=== PATIENT | female | born 1970 | race Caucasian/White ===

== ENCOUNTER 2019-08-06 17:56 | Observation (INO) ==
--- NOTE | 2019-08-06 18:21 | Emergency Department Note ---
Disposition Clinical Impression: Asthma with exacerbation Qualifiers: Asthma severity: mild Asthma persistence: intermittent Qualified Code(s): J45.21 - Mild intermittent asthma with (acute) exacerbation Disposition: Still a Patient Condition: Good Instructions: How to Use a Nebulizer (ED), Asthma (ED) Reasons to Return/Additional Instructions: You were given a DuoNeb's as well as Decadron a steroid and magnesium sulfate while here in the ED. We will likely to follow-up with primary care physician. Please contact them tomorrow to discuss her emergency department visit. We did provide you with DuoNeb's for home use. If you have any increase in her shortness of breath or develop chest pain or any other signs or symptoms are concerning to you please return to emergency department immediately. Prescriptions: Ipratropium/Albuterol Neb [Duoneb] 3 ml IH ONCE 30 Days #1 unit Forms: ED Satisfaction Letter Time of Disposition: 20:02 General Adult HPI - General Chief complaint: ED Shortness of Breath/Dyspnea Stated complaint: HANANE Time Seen by Provider: 08/06/19 18:13 Source: patient Limitations: no limitations Nursing Notes Reviewed: Yes Vital Signs Reviewed: Yes - History of Present Illness HPI Narrative: Female patient with a history of strokes previously is currently on a local is presenting to the emergency department complaining of shortness of breath. Also has history of asthma. Has been using her rescue inhaler. States her symptoms started on Tuesday after she was at her family's house. Thought this was just an asthma exacerbation but started feeling worse throughout the day. States that she was laying in bed all day because of her shortness of breath. States today after she started coughing severely she started having a right-sided chest pain. She describes it as sharp in nature. It is intermittent. States she does have a productivity to her cough. Has not checked her temperature to know if she has a fever. She reports some nausea but denies any vomiting. Was seen at urgent care and sent here for further evaluation. Pain Scale: 7 - Related Data Home Medications Medication Instructions Recorded Confirmed Aspirin 325 mg PO DAILY 08/27/15 08/24/16 Escitalopram [Lexapro] 20 mg PO DAILY 08/27/15 08/24/16 Lansoprazole [Prevacid] 30 mg PO BID 08/27/15 08/24/16 Montelukast [Singulair] 10 mg PO DAILY 08/27/15 08/24/16 Albuterol Neb [Proventil Neb] 2.5 mg IH Q4HR 06/25/16 08/24/16 Aspirin/Acetaminophen/Caffeine 1 tab PO Q6H PRN 06/25/16 08/24/16 [Excedrin Migraine Caplet] L.acidoph,Paracasei, B.lactis 1 cap PO DAILY 06/25/16 08/24/16 [Probiotic] Metoprolol Succinate 100 mg PO DAILY 06/25/16 08/24/16 Multivitamin [Multivitamins] 1 cap PO DAILY 06/25/16 08/24/16 Levothyroxine [Synthroid] 25 mcg PO QAM 08/24/16 08/24/16 Previous Rx's Medication Instructions Recorded Apixaban [Eliquis] 5 mg PO BID #60 tablet 02/02/16 Acetaminophen [Tylenol] 650 mg PO Q6H PRN #0 tablet 08/31/16 Albuterol Neb [Proventil Neb] 2.5 mg IH Q4HR inhsol 08/31/16 Melatonin 3 mg PO HS PRN #0 tablet 08/31/16 Midodrine [ProAmatine] 5 mg PO 0800,1200,1700 tablet 08/31/16 OxyCODONE Immed Rel [Roxicodone 10 5 mg PO Q6H PRN #10 tablet 08/31/16 MG] OxyCODONE/APAP 5/325 [Percocet 1 each PO Q6HR PRN #10 tablet 08/31/16 5/325 MG] Pregabalin [Lyrica] 150 mg PO TID #10 capsule 08/31/16 Promethazine [Phenergan] 25 mg PO ACHS tablet 08/31/16 Sennosides/Docusate Sodium [Senna 1 each PO BID tablet 08/31/16 Plus] Zolpidem [Ambien] 10 mg PO HS PRN #3 tablet 08/31/16 clonazePAM [Klonopin] 0.5 mg PO BID #10 tablet 08/31/16 Ipratropium/Albuterol Neb [Duoneb] 3 ml IH ONCE 30 Days #1 unit 08/06/19 Allergies Allergy/AdvReac Type Severity Reaction Status Date / Time codeine Allergy Nausea Verified 08/06/19 18:00 Penicillins [PCN] Allergy Vomiting Verified 08/06/19 18:00 Pineapple Allergy Hives Verified 08/06/19 18:00 rofecoxib [From Vioxx] Allergy See Verified 08/06/19 18:00 Comments Sulfa (Sulfonamide Allergy Rash Verified 08/06/19 18:00 Antibiotics) All systems ED: reviewed and negative except as stated. Review of Systems: As Per HPI Constitutional: Denies: chills ENT ED: Denies: congestion Cardiovascular: Reports: chest pain. Denies: syncope Respiratory: Reports: cough, dyspnea, sputum production Gastrointestinal: Reports: nausea. Denies: abdominal pain, vomiting, diarrhea Genitourinary: Denies: urgency Musculoskeletal: Denies: back pain Neurological: Denies: headache Past Medical History - Past Medical History Attestation: Yes The following information was validated with the patient. Source: patient Medical history: Reports: asthma, coronary artery disease, CVA, fibromyalgia, GERD, liver disease, seizures, thyroid disease, TIA, other Surgical history: Reports: appendectomy, cholecystectomy, hysterectomy, other Psychiatric history: Reports: anxiety, depression BENDER MACHINE history: Reports: no BENDER MACHINE history - Social History Smoking Status: Never smoker Smokeless Tobacco Status: No Alcohol use: Reports: rarely Drug use: Reports: none Physical Exam - General Limitations: no limitations General appearance: alert, in no apparent distress - Head Head exam: atraumatic, normocephalic, normal inspection - Eye Eye exam: Present: normal appearance, PERRL, EOMI - ENT ENT exam: normal exam, normal oropharynx, mucous membranes moist - Neck Neck exam: Present: normal inspection, full ROM, trachea midline - Chest Chest inspection: Present: normal inspection, symmetric chest wall rise - Respiratory Respiratory exam: Present: wheezes (Bilaterally. Expiratory. Crackles worse on the right in the middle lobe area.). Absent: respiratory distress, accessory muscle use - Cardiovascular Cardiovascular exam: Present: regular rate, normal rhythm, normal heart sounds - Abdominal Exam Abdominal exam: Present: soft, Non-Tender. Absent: tenderness, distention, guarding, rebound, rigidity, organomegaly, Sinclair's sign, Rovsing's sign, tenderness at McBurney's Point - Extremities Exam Extremities exam: Present: normal inspection, full ROM, normal capillary refill. Absent: tenderness, pedal edema, calf tenderness - Neurological Exam Neurological exam: Present: alert, oriented X3 - Psychiatric Psychiatric exam: Present: normal affect, normal mood - Skin Skin exam: Present: warm, dry, intact, normal color. Absent: rash, cyanosis, diaphoresis Course Course Narrative: Patient with a history of asthma. Extra wheeze throughout. Crackles noted on the right worse than the left as well. No fevers. Not tachycardic. Concerned because the patient does have a history of strokes. We will get a d-dimer she does have some chest pain associated with coughing. We will provide patient with a DuoNeb as well. We will get a chest x-ray. We will provide patient with a liter of fluid and she states she has not been eating or drinking for the past 2-3 days because of her increased risk of breath that is with a productive sputum. - Reevaluation(s) Reevaluation #1: Patient reevaluated. Patient still with an expiratory wheeze. Appears to be more tracheal in nature however her lung sounds are tight throughout. Oxygen saturations dipping down to 90%. D-dimer is negative. No signs of pneumonia on her chest x-ray. We will provide patient with 2 more duo nebs and magnesium sul fate. We will reevaluate at that time. Patient does use oxygen at home occasionally. She has been using this while here. Her actions saturation is been stable 90% on 2 L. Patient has requested not to be admitted at this time. I feel this is reasonable. We will give patient 2 more duo nebs as well as provide her with magnesium sulfate and reevaluate. Time: 19:33 Vital Signs Temperature 99.3 F 08/06/19 17:58 Pulse Rate 87 08/06/19 17:58 Respiratory Rate 18 08/06/19 17:58 Blood Pressure 106/77 08/06/19 17:58 O2 Sat by Pulse Oximetry 95 08/06/19 17:58 Temperature 99.3 F 08/06/19 17:58 Pulse Rate 91 08/06/19 18:54 Respiratory Rate 22 08/06/19 18:54 Blood Pressure 110/79 08/06/19 18:54 O2 Sat by Pulse Oximetry 98 08/06/19 18:54 Oxygen Delivery Oxygen Delivery Room Air Medical Decision Making - Medical Records Medical records reviewed: Yes I reviewed the patient's medical records. - Lab Data Lab results reviewed: Yes I reviewed the patient's lab results. Result diagrams: 08/06/19 18:45 08/06/19 18:45 Lab Results 08/06/19 08/06/19 08/06/19 Range/Units 18:45 18:45 18:45 WBC 8.1 (4.3-11.1) K/mcL RBC 5.12 H (3.82-4.97) M/mcL Hgb 14.0 (11.5-15.4) g/dL Hct 44.0 (35.3-44.9) % MCV 85.9 (83.0-100.0) fL MCH 27.3 L (28.0-33.3) pg MCHC 31.8 (31.6-35.5) g/dL RDW 12.1 (11.5-14.5) % Plt Count 200 (140-400) K/mcL MPV 10.8 (9.4-12.4) fL Immature Gran % 1.0 (0-4) % Seg Neutrophils % 72.6 % Lymphocytes % 15.0 % Monocytes % 7.2 % Eosinophils % 3.6 % Basophils % 0.6 % Neutrophils # 5.9 (1.6-8.9) K/mcL Lymphocytes # 1.2 (0.6-4.6) K/mcL Monocytes # 0.6 (0.0-1.3) K/mcL Eosinophils # 0.3 (0.0-0.6) K/mcL Basophils # 0.1 (0.0-0.2) K/mcL D-Dimer 381 (0-500) ng/mLFEU Sodium 137 (136-145) mEq/L Potassium 3.9 (3.5-5.1) mEq/L Chloride 98 (98-107) mEq/L Carbon Dioxide 27 (23-29) mEq/L BUN 10 (6-20) mg/dL Creatinine 1.10 (0.60-1.20) mg/dL Est GFR ( Amer) > 60 (> 60) Est GFR (Non-Af Amer) 53 L (> 60) BUN/Creatinine Ratio 9 (6-26) Glucose 90 (70-105) mg/dL Calculated Osmolality 283 (280-300) Lactic Acid (0.5-2.2) mmol/L Calcium 9.4 (8.6-10.3) mg/dL Troponin I < 0.03 (< 0.04) ng/mL 08/06/19 Range/Units 18:45 WBC (4.3-11.1) K/mcL RBC (3.82-4.97) M/mcL Hgb (11.5-15.4) g/dL Hct (35.3-44.9) % MCV (83.0-100.0) fL MCH (28.0-33.3) pg MCHC (31.6-35.5) g/dL RDW (11.5-14.5) % Plt Count (140-400) K/mcL MPV (9.4-12.4) fL Immature Gran % (0-4) % Seg Neutrophils % % Lymphocytes % % Monocytes % % Eosinophils % % Basophils % % Neutrophils # (1.6-8.9) K/mcL Lymphocytes # (0.6-4.6) K/mcL Monocytes # (0.0-1.3) K/mcL Eosinophils # (0.0-0.6) K/mcL Basophils # (0.0-0.2) K/mcL D-Dimer (0-500) ng/mLFEU Sodium (136-145) mEq/L Potassium (3.5-5.1) mEq/L Chloride (98-107) mEq/L Carbon Dioxide (23-29) mEq/L BUN (6-20) mg/dL Creatinine (0.60-1.20) mg/dL Est GFR ( Amer) (> 60) Est GFR (Non-Af Amer) (> 60) BUN/Creatinine Ratio (6-26) Glucose (70-105) mg/dL Calculated Osmolality (280-300) Lactic Acid 1.1 (0.5-2.2) mmol/L Calcium (8.6-10.3) mg/dL Troponin I (< 0.04) ng/mL - Radiology Data Radiology results reviewed: Yes I reviewed the patient's radiology results. Chest X-Ray 08/06/19 18:36 IMPRESSION: Negative portable study. D/ / Apoorva Colby Cha, MD / Apoorva Colby Cha, MD Interpreting Provider: Apoorva Colby Cha, MD - EKG Data EKG #1 EKG attestation: Yes I reviewed and interpreted this EKG. EKG results narrative: Normal sinus rhythm at a rate 82. NC interval is 187. Castration is 84. QT is 380. QTC is 419. No signs of acute ischemia. Poor R-wave progression. No signs of WPW or Brugada. No significant change from previous EKG dated 05/31/2016. Patient does have T-wave inversion in lead 3 this was on previous EKG.
--- NOTE | 2019-08-06 18:22 | Emergency Department Note ---
Disposition Clinical Impression: Asthma with exacerbation Qualifiers: Asthma severity: mild Asthma persistence: intermittent Qualified Code(s): J45.21 - Mild intermittent asthma with (acute) exacerbation Disposition: Admitted As Inpatient Condition: Good Instructions: Asthma (ED), How to Use a Nebulizer (ED) Reasons to Return/Additional Instructions: You were given a DuoNeb's as well as Decadron a steroid and magnesium sulfate while here in the ED. We will likely to follow-up with primary care physician. Please contact them tomorrow to discuss her emergency department visit. We did provide you with DuoNeb's for home use. If you have any increase in her shortness of breath or develop chest pain or any other signs or symptoms are concerning to you please return to emergency department immediately. Prescriptions: Ipratropium/Albuterol Neb [Duoneb] 3 ml IH ONCE 30 Days #1 unit Forms: ED Satisfaction Letter Time of Disposition: 20:19 General Adult HPI - General Chief complaint: ED Shortness of Breath/Dyspnea Stated complaint: HANANE Time Seen by Provider: 08/06/19 18:13 Source: patient Limitations: no limitations - History of Present Illness Pain Scale: 7 - Related Data Home Medications Medication Instructions Recorded Confirmed Aspirin 325 mg PO DAILY 08/27/15 08/24/16 Escitalopram [Lexapro] 20 mg PO DAILY 08/27/15 08/24/16 Lansoprazole [Prevacid] 30 mg PO BID 08/27/15 08/24/16 Montelukast [Singulair] 10 mg PO DAILY 08/27/15 08/24/16 Albuterol Neb [Proventil Neb] 2.5 mg IH Q4HR 06/25/16 08/24/16 Aspirin/Acetaminophen/Caffeine 1 tab PO Q6H PRN 06/25/16 08/24/16 [Excedrin Migraine Caplet] L.acidoph,Paracasei, B.lactis 1 cap PO DAILY 06/25/16 08/24/16 [Probiotic] Metoprolol Succinate 100 mg PO DAILY 06/25/16 08/24/16 Multivitamin [Multivitamins] 1 cap PO DAILY 06/25/16 08/24/16 Levothyroxine [Synthroid] 25 mcg PO QAM 08/24/16 08/24/16 Previous Rx's Medication Instructions Recorded Apixaban [Eliquis] 5 mg PO BID #60 tablet 02/02/16 Acetaminophen [Tylenol] 650 mg PO Q6H PRN #0 tablet 08/31/16 Albuterol Neb [Proventil Neb] 2.5 mg IH Q4HR inhsol 08/31/16 Melatonin 3 mg PO HS PRN #0 tablet 08/31/16 Midodrine [ProAmatine] 5 mg PO 0800,1200,1700 tablet 08/31/16 OxyCODONE Immed Rel [Roxicodone 10 5 mg PO Q6H PRN #10 tablet 08/31/16 MG] OxyCODONE/APAP 5/325 [Percocet 1 each PO Q6HR PRN #10 tablet 08/31/16 5/325 MG] Pregabalin [Lyrica] 150 mg PO TID #10 capsule 08/31/16 Promethazine [Phenergan] 25 mg PO ACHS tablet 08/31/16 Sennosides/Docusate Sodium [Senna 1 each PO BID tablet 08/31/16 Plus] Zolpidem [Ambien] 10 mg PO HS PRN #3 tablet 08/31/16 clonazePAM [Klonopin] 0.5 mg PO BID #10 tablet 08/31/16 Ipratropium/Albuterol Neb [Duoneb] 3 ml IH ONCE 30 Days #1 unit 08/06/19 Allergies Allergy/AdvReac Type Severity Reaction Status Date / Time codeine Allergy Nausea Verified 08/06/19 18:00 Penicillins [PCN] Allergy Vomiting Verified 08/06/19 18:00 Pineapple Allergy Hives Verified 08/06/19 18:00 rofecoxib [From Vioxx] Allergy See Verified 08/06/19 18:00 Comments Sulfa (Sulfonamide Allergy Rash Verified 08/06/19 18:00 Antibiotics) Past Medical History - Past Medical History Medical history: Reports: asthma, coronary artery disease, CVA, fibromyalgia, GERD, liver disease, seizures, thyroid disease, TIA, other Surgical history: Reports: appendectomy, cholecystectomy, hysterectomy, other Psychiatric history: Reports: anxiety, depression SHIP'S COOK history: Reports: no SHIP'S COOK history - Social History Smoking Status: Never smoker Smokeless Tobacco Status: No Alcohol use: Reports: rarely Drug use: Reports: none Physical Exam - General Limitations: no limitations General appearance: alert, in no apparent distress Course Vital Signs Temperature 99.3 F 08/06/19 17:58 Pulse Rate 87 08/06/19 17:58 Respiratory Rate 18 08/06/19 17:58 Blood Pressure 106/77 08/06/19 17:58 O2 Sat by Pulse Oximetry 95 08/06/19 17:58 Temperature 99.3 F 08/06/19 17:58 Pulse Rate 91 08/06/19 20:04 Respiratory Rate 22 08/06/19 20:04 Blood Pressure 99/66 08/06/19 20:04 O2 Sat by Pulse Oximetry 98 08/06/19 20:04 Oxygen Delivery Oxygen Delivery Nasal Cannula Medical Decision Making - Lab Data Result diagrams: 08/06/19 18:45 08/06/19 18:45 Lab Results 08/06/19 08/06/19 08/06/19 Range/Units 18:45 18:45 18:45 WBC 8.1 (4.3-11.1) K/mcL RBC 5.12 H (3.82-4.97) M/mcL Hgb 14.0 (11.5-15.4) g/dL Hct 44.0 (35.3-44.9) % MCV 85.9 (83.0-100.0) fL MCH 27.3 L (28.0-33.3) pg MCHC 31.8 (31.6-35.5) g/dL RDW 12.1 (11.5-14.5) % Plt Count 200 (140-400) K/mcL MPV 10.8 (9.4-12.4) fL Immature Gran % 1.0 (0-4) % Seg Neutrophils % 72.6 % Lymphocytes % 15.0 % Monocytes % 7.2 % Eosinophils % 3.6 % Basophils % 0.6 % Neutrophils # 5.9 (1.6-8.9) K/mcL Lymphocytes # 1.2 (0.6-4.6) K/mcL Monocytes # 0.6 (0.0-1.3) K/mcL Eosinophils # 0.3 (0.0-0.6) K/mcL Basophils # 0.1 (0.0-0.2) K/mcL D-Dimer 381 (0-500) ng/mLFEU Sodium 137 (136-145) mEq/L Potassium 3.9 (3.5-5.1) mEq/L Chloride 98 (98-107) mEq/L Carbon Dioxide 27 (23-29) mEq/L BUN 10 (6-20) mg/dL Creatinine 1.10 (0.60-1.20) mg/dL Est GFR ( Amer) > 60 (> 60) Est GFR (Non-Af Amer) 53 L (> 60) BUN/Creatinine Ratio 9 (6-26) Glucose 90 (70-105) mg/dL Calculated Osmolality 283 (280-300) Lactic Acid (0.5-2.2) mmol/L Calcium 9.4 (8.6-10.3) mg/dL Troponin I < 0.03 (< 0.04) ng/mL 08/06/19 Range/Units 18:45 WBC (4.3-11.1) K/mcL RBC (3.82-4.97) M/mcL Hgb (11.5-15.4) g/dL Hct (35.3-44.9) % MCV (83.0-100.0) fL MCH (28.0-33.3) pg MCHC (31.6-35.5) g/dL RDW (11.5-14.5) % Plt Count (140-400) K/mcL MPV (9.4-12.4) fL Immature Gran % (0-4) % Seg Neutrophils % % Lymphocytes % % Monocytes % % Eosinophils % % Basophils % % Neutrophils # (1.6-8.9) K/mcL Lymphocytes # (0.6-4.6) K/mcL Monocytes # (0.0-1.3) K/mcL Eosinophils # (0.0-0.6) K/mcL Basophils # (0.0-0.2) K/mcL D-Dimer (0-500) ng/mLFEU Sodium (136-145) mEq/L Potassium (3.5-5.1) mEq/L Chloride (98-107) mEq/L Carbon Dioxide (23-29) mEq/L BUN (6-20) mg/dL Creatinine (0.60-1.20) mg/dL Est GFR ( Amer) (> 60) Est GFR (Non-Af Amer) (> 60) BUN/Creatinine Ratio (6-26) Glucose (70-105) mg/dL Calculated Osmolality (280-300) Lactic Acid 1.1 (0.5-2.2) mmol/L Calcium (8.6-10.3) mg/dL Troponin I (< 0.04) ng/mL Attestation Statement - Attestation Attestation: I reviewed the residents documentation and agree with the residents assessment and plan of care. I have personally had face to face time with the patient. (B rief History, Brief Exam, and MDM) I personally supervised and was present for the [place]/critical portions of the following procedures completed by the resident: (add procedures performed here). [id number] time provided Patient presents at the recognition of her primary care provider for dyspnea, suspected asthma exacerbation. Patient mildly tachypneic with mild increased work of breathing upon arrival. I attest to supervising the resident physician's interpretation of the ECG
[2019-08-06] MEDS ORDERED: Ipratropium/Albuterol Neb 3 ML ONE (18:28)
[2019-08-06] MEDS ORDERED: 0.9 % Sodium Chloride 1,000 ML IVC ONE (18:35)
[2019-08-06] MEDS ORDERED: Dexamethasone 4 MG/ML VIAL IVP STA (18:36)
[2019-08-06] MEDS ORDERED: Ipratropium/Albuterol Neb 3 ML IH ONE ×2 (18:41→19:31)
[2019-08-06 19:06] LABS: Basophils # 0.1 K/mcL (0.0-0.2); Basophils % 0.6 %; Eosinophils # 0.3 K/mcL (0.0-0.6); Eosinophils % 3.6 %; Lymphocytes # 1.2 K/mcL (0.6-4.6); Mean Corpuscular HGB Conc 31.8 g/dL (31.6-35.5); Mean Corpuscular Hemoglobin 27.3 pg (28.0-33.3); Mean Corpuscular Volume 85.9 fL (83.0-100.0); Mean Platelet Volume 10.8 fL (9.4-12.4); Monocytes # 0.6 K/mcL (0.0-1.3); Monocytes % 7.2 %; Neutrophils # 5.9 K/mcL (1.6-8.9); Platelet Count 200 K/mcL (140-400); Red Blood Count 5.12 M/mcL (3.82-4.97); Red Cell Distribution Width 12.1 % (11.5-14.5); Segmented Neutrophils % 72.6 %; White Blood Count 8.1 K/mcL (4.3-11.1)
[2019-08-06 19:37] LABS: BUN/Creatinine Ratio 9 (6-26); Blood Urea Nitrogen 10 mg/dL (6-20); Calcium 9.4 mg/dL (8.6-10.3); Carbon Dioxide 27 mEq/L (23-29); Chloride 98 mEq/L (98-107); Glucose 90 mg/dL (70-105); Osmolality,Calculated 283 (280-300); Potassium 3.9 mEq/L (3.5-5.1); Sodium 137 mEq/L (136-145); Troponin I < 0.03 ng/mL (< 0.04); eGFR For African Americans > 60 (> 60); eGFR For Non-African Americans 53 (> 60)
--- NOTE | 2019-08-06 21:42 | Internal Med History&Physical ---
<Angy Beach - Last Filed: 08/07/19 03:38> Date of Encounter: 08/07/19 Time of Encounter: 21:42 Internal Medicine - H&P: HPI Chief complaint: Shortness of breath Admitted From: Emergency Dept Plans for Post Hospital Care: Home History of present illness: Ms. Amin is a 48 year old female with past medical history of asthma, CVA, CAD, thyroid disease, "blood clotting disorder", fibromyalgia who presented to [facility] complaining of shortness of breath. On my examination of the patient she reported that Tuesday afternoon she noticed she was more short of breath and it continued to worsen throughout the day. Tuesday there was no real improvement and she used her breathing treatments that did not help. It was exacerbated by exertion. She had some chest tightness with the feeling of unable to take a de ep breath. She believed that she was having an asthma exacerbation she has had one which felt similar and was hospitalized in the past. She noticed her asthma is worse in the fall and in the winter for which she uses her dulera inhaler daily only during those times. She had been given 2L of oxygen to wear at bedtime however, she has not worn it in a very long time and her PCP discontinued. Additionally she started having a cough with yellow sputum production and chest congestion. She had decreased appetite with a little nausea. She is noticed that her acid reflux has been worse than normal over the past week with burning the back of her throat despite taking Prevacid daily. Denied recent surgery, immobilization, long travel, recent hospitalization, sick contacts. She believes she is also have any fibromyalgia flair with all over achiness of her body from head to toe to even slight touch. Even touching her skin lightly or pulling on her hair cause pain. She takes oxycodone and Lyrica daily for fibromyalgia. She is had fibromyalgia flares in the past and this feels similar but slightly worse. She denied fevers, abdominal pain, diarrhea, change in vision. She denied smoking, drug use. She is a full code. In the emergency department initial vitals were 99.3F, HR 87, RR 18, BP 106/77, SpO2 95% on room air. CBC, BMP, lactic acid, troponin unremarkable. Ddimer 381. Chest x-ray negative for acute cardiopulmonary process. -In the ED the patient was given magnesium, dexamethasone, duonebs, 1L IVF. Past Med Surg Social Fam HX - Past Medical History Attestation: Yes The following information was validated with the patient. Source: patient Medical history: asthma, coronary artery disease, CVA, fibromyalgia, GERD, liver disease, seizures, thyroid disease, TIA, other Additional medical history: gastric polyps, reactive airway disease Psychiatric history: anxiety, depression - Past Surgical History Surgical History: appendectomy, cholecystectomy, hysterectomy, other Additional surgical history: cardiac cath-no stents - Social History Smoking Status: Never smoker Smokeless Tobacco Status: No Alcohol use: rarely Drug use: none - Family History Father Hx Family Cardiac Disorders: Yes (HTN, HLD) Internal Medicine - H&P: Meds Apixaban [Eliquis] 5 mg PO BID #60 tablet 02/02/16 [Rx] Levothyroxine [Synthroid] 25 mcg PO 0630 08/24/16 [History] Melatonin 3 mg PO HS PRN #0 tablet 08/31/16 [Rx] Zolpidem [Ambien] 10 mg PO HS PRN #3 tablet 08/31/16 [Rx] Albuterol Neb [Proventil Neb] 2.5 mg IH Q4HR PRN 08/06/19 [History] Amitriptyline HCl 75 mg PO HS 08/06/19 [History] Atorvastatin [Lipitor] 40 mg PO DAILY 08/06/19 [History] Butalb/Acetaminophen/Caffeine [Tofsgb-Dmqmcheb-Vwxw 50-325-40] 1 each PO Q4H PRN 08/06/19 [History] Dextromethorphan HBr/Quinidine [Nuedexta 20-10 mg Capsule] 1 cap PO BID 08/06/19 [History] Folic Acid/Multivit-Min/Lutein [Adult Multivitamin Gummies] 1 each PO DAILY 08/06/19 [History] Furosemide [Lasix] 20 mg PO DAILY PRN 08/06/19 [History] Ketorolac [Toradol] 10 mg PO BID PRN 08/06/19 [History] Metoprolol Succinate [Toprol Xl] 100 mg PO DAILY 08/06/19 [History] Mometasone/Formoterol [Dulera 200 Mcg/5 Mcg Inhaler] 2 puff IH BID 08/06/19 [History] Montelukast [Singulair] 10 mg PO QPM 08/06/19 [History] OxyCODONE Immed Rel [Roxicodone 10 MG] 10 mg PO QID PRN 08/06/19 [History] Pregabalin 200 mg PO TID 08/06/19 [History] Sennosides/Docusate Sodium [Senna Plus] 1 each PO BID PRN 08/06/19 [History] Tizanidine HCl 4 mg PO TID PRN 08/06/19 [History] Trazodone HCl 200 mg PO HS 08/06/19 [History] Vortioxetine Hydrobromide [Trintellix] 20 mg PO DAILY 08/06/19 [History] hydrOXYzine pamoate [HydrOXYzine Pamoate] 50 mg PO TID PRN 08/06/19 [History] Allergy/AdvReac Type Severity Reaction Status Date / Time codeine Allergy Nausea Verified 08/06/19 18:00 Penicillins [PCN] Allergy Vomiting Verified 08/06/19 18:00 Pineapple Allergy Hives Verified 08/06/19 18:00 rofecoxib [From Vioxx] Allergy See Verified 08/06/19 18:00 Comments Sulfa (Sulfonamide Allergy Rash Verified 08/06/19 18:00 Antibiotics) All Systems PM: A 10-system review of systems was performed and is negative for pertinent findings except as documented above in the HPI. - Constitutional Constitutional: anorexia, chills, no fever(s) - EENT Eyes: no change in vision, no loss of vision - Cardiovascular Cardiovascular ROS IM: chest pain (Tightness), no edema, no palpitations, no syncope - Respiratory Respiratory: cough, dyspnea, dyspnea on exertion, wheezing, chest congestion, change in phlegm color (Yellow) - Gastrointestinal Gastrointestinal: nausea, no abdominal pain, no diarrhea - Genitourinary Genitourinary: no dysuria - Musculoskeletal Musculoskeletal ROS IM: back pain, myalgias - Integumentary Integumentary IM: no rash, no skin ulcer - Neurological Neurological ROS: headache(s), no dizziness, no loss of vision - Allergic/Immunologic Allergic/Immunologic: seasonal rhinorrhea, wheezing - Constitutional Vitals: Temp Pulse Resp BP Pulse Ox 99.3 F 91 20 116/94 98 08/06/19 17:58 08/06/19 20:04 08/06/19 21:12 08/06/19 21:12 08/06/19 20:04 Exam: Gen.: Vitals noted. No acute distress. AAOx3 HEENT: oropharynx clear, Normocephalic, atraumatic Cardiac: RRR, no murmur, +S1/S2 Pulmonary: bilaterally decreased breath sounds and expiratory wheezes, no rales or rhonchi, equal chest expansion Abdomen: soft, nontender, Bowel sounds noted, no guarding Back: tender throughout. MSK: ROM intact, no joint swelling noted, tender to touch on shoulders, arms, legs, everywhere Extremities: no BLE edema, no cyanosis or clubbing Neuro: A&Ox3, moves all extremities Psych: Appropriate mood and behavior Internal Med - H&P Results - Labs CBC & Chem 7: 08/06/19 18:45 08/06/19 18:45 Labs: Short CBC 08/06/19 Range/Units 18:45 WBC 8.1 (4.3-11.1) K/mcL Hgb 14.0 (11.5-15.4) g/dL Hct 44.0 (35.3-44.9) % Plt Count 200 (140-400) K/mcL Neutrophils # 5.9 (1.6-8.9) K/mcL BMP 08/06/19 18:45 Sodium 137 Potassium 3.9 Chloride 98 Carbon Dioxide 27 BUN 10 Creatinine 1.10 Glucose 90 Calcium 9.4 Cardiac Enzymes 08/06/19 Range/Units 18:45 Troponin I < 0.03 (< 0.04) ng/mL - Impressions ITS Impressions Chest X-Ray 08/06/19 18:36 IMPRESSION: Negative portable study. D/ / Apoorva Colby Cha, MD / Apoorva Colby Cha, MD Interpreting Provider: Apoorva Colby Cha, MD - Assessment and Plan (1) Asthma with exacerbation Current Visit: Yes Status: Acute Assessment and plan: Patient with known history of asthma and having mild asthma exacerbation in the past presents with shortness of breath. Likely asthma exacerbation. However, patient recently had increased acid reflux from known Gerd over the past week that may be contributing to her shortness of breath. Tuesday the shortness of breath started and persisted to today with cough and yellow sputum production. Duonebs at home did not help. She has worsening of asthma in the fall and winter for which she uses Dulera daily during those times. The patient never became hypoxic. In the ED the patient was given magnesium, dexamethasone, duonebs, 1L IVF. -Afebrile, HR 94, SpO2 97% on 3L. -CBC, BMP, lactic acid, troponin unremarkable. Ddimer 381. -Chest x-ray negative for acute cardiopulmonary process. plan: -continue oral prednisone 40 mg daily to anticipate 5-7 days treatment -continue omeprazole daily -continue her home Dulera inhaler scheduled -continue scheduled duonebs -continue supplemental oxygen Qualifiers: Asthma severity: mild Asthma persistence: intermittent Qualified Code(s): J45.21 - Mild intermittent asthma with (acute) exacerbation (2) Shortness of breath Current Visit: Yes Status: Acute Assessment and plan: Likely secondary to asthma exacerbation however also consider may be worsened by recent acid reflux worsening over the past week. She takes Prevacid. Low suspicion for PE, ACS. -CBC, BMP, lactic acid, troponin unremarkable. Ddimer 381. -Chest x-ray negative for acute cardiopulmonary process. -Wells score: 0 -ddimer 381 -Continue omeprazole daily -continue steroids, bronchodilators, dulera, supplemental oxygen (3) Fibromyalgia Current Visit: No Status: Chronic Assessment and plan: Patient is known history of fibromyalgia taking oxycodone, Lyrica, tizanidine, amitriptyline, hydroxyzine, Ambien. Patient believes that she has a fibromyalgia flair that feels slightly worse than other past flares. Her skin from head to toe is tender to the touch even touching her hair is tender. She has had flares in the past. She describes as an ache. -Will continue her home medications that she requested oxycodone, Lyrica, tizanidine, amitriptyline, hydroxyzine. (4) GERD (gastroesophageal reflux disease) Current Visit: No Status: Chronic Assessment and plan: Patient has Gerd for which she takes Prevacid. She reports recent worsening of acid reflux of the past week. -Will continue omeprazole daily Qualifiers: Esophagitis presence: esophagitis presence not specified Qualified Code(s): K21.9 - Gastro-esophageal reflux disease without esophagitis (5) Hypercoagulable state Current Visit: No Status: Chronic Assessment and plan: Patient reports having some sort of blood clotting disorder and hypercoagulable state for which she has been thoroughly worked up by a packaging line operator Dr. Zeng. She takes Eliquis. She is had CVA's in the past. -Continue home Eliquis (6) Hypothyroidism Current Visit: No Status: Chronic Assessment and plan: History of known hypothyroidism taking levothyroxine. Continue her medication. Qualifiers: Hypothyroidism type: acquired Qualified Code(s): E03.9 - Hypothyroidism, unspecified (7) Anxiety Current Visit: No Status: Chronic Assessment and plan: History of known anxiety taking amitriptyline, hydroxyzine, vortioxetine, Ambien. Continue home medications (8) Polypharmacy Current Visit: No Status: Acute Assessment and plan: Patient has polypharmacy with taking a significant number of medications including oxycodone, Lyrica, tizanidine, amitriptyline, hydroxyzine, Ambien. OARRS report was checked and confirms that she does take oxycodone, Lyrica, Ambien. (9) History of CVA in adulthood Current Visit: No Status: Chronic Assessment and plan: She has history of CVA some past taking Eliquis. Continue medication (10) DVT prophylaxis Current Visit: Yes Status: Acute Assessment and plan: Continue eliquis - Time Spent With Patient Total time spent is greater than 50% in coordination of care (as documented) at patient's floor/unit and/or counseling patient: <Sasha Huitron - Last Filed: 08/07/19 04:45> Date of Encounter: 08/07/19 Internal Medicine - H&P: HPI History of present illness: Ms. Amin is a 48 year old female All Systems PM: A 10-system review of systems was performed and is negative for pertinent findings except as documented above in the HPI. - Constitutional Vitals: Temp Pulse Resp BP Pulse Ox 97.6 F 97 16 110/75 96 08/07/19 03:25 08/07/19 03:25 08/07/19 04:00 08/07/19 03:25 08/07/19 04:00 Internal Med - H&P Results - Labs CBC & Chem 7: 08/06/19 18:45 08/06/19 18:45 Labs: Short CBC 08/06/19 Range/Units 18:45 WBC 8.1 (4.3-11.1) K/mcL Hgb 14.0 (11.5-15.4) g/dL Hct 44.0 (35.3-44.9) % Plt Count 200 (140-400) K/mcL Neutrophils # 5.9 (1.6-8.9) K/mcL BMP 08/06/19 18:45 Sodium 137 Potassium 3.9 Chloride 98 Carbon Dioxide 27 BUN 10 Creatinine 1.10 Glucose 90 Calcium 9.4 Cardiac Enzymes 08/06/19 Range/Units 18:45 Troponin I < 0.03 (< 0.04) ng/mL - Impressions ITS Impressions Chest X-Ray 08/06/19 18:36 IMPRESSION: Negative portable study. D/ / Apoorva Colby Cha, MD / Apoorva Colby Cha, MD Interpreting Provider: Apoorva Colby Cha, MD - Assessment and Plan (1) Hypercoagulable state Current Visit: No Status: Chronic (2) GERD (gastroesophageal reflux disease) Current Visit: No Status: Chronic Qualifiers: Esophagitis presence: esophagitis presence not specified Qualified Code(s): K21.9 - Gastro-esophageal reflux disease without esophagitis (3) Fibromyalgia Current Visit: No Status: Chronic (4) Hypothyroidism Current Visit: No Status: Chronic Qualifiers: Hypothyroidism type: acquired Qualified Code(s): E03.9 - Hypothyroidism, unspecified (5) Anxiety Current Visit: No Status: Chronic (6) Polypharmacy Current Visit: No Status: Acute (7) History of CVA in adulthood Current Visit: No Status: Chronic (8) Asthma with exacerbation Current Visit: Yes Status: Acute Qualifiers: Asthma severity: mild Asthma persistence: intermittent Qualified Code(s): J45.21 - Mild intermittent asthma with (acute) exacerbation (9) Shortness of breath Current Visit: Yes Status: Acute (10) DVT prophylaxis Current Visit: Yes Status: Acute - Time Spent With Patient Total time spent is greater than 50% in coordination of care (as documented) at patient's floor/unit and/or counseling patient: - Attending Attestation Patient seen and examined independently, including review of objective data including labs. I agree with plan of care as documented below by the resident. Acute hypoxic Respiratory failure: Currently on 3L baseline on RA. secondary to Asthma exacerbation: added Peak flow and VBG. D-dimer negative. DVT prophylaxis: on eliquis Dispo: less than 2 day stay.
[2019-08-06] MEDS ORDERED: Naloxone 0.4 MG/ML INJ IVP PRN (22:43)
[2019-08-06] MEDS: Budesonide/Formoterol 160/4.5 1 PUFF INH IH SCH (23:08)
[2019-08-06] MEDS: Ipratropium/Albuterol Neb 3 ML IH SCH (23:08)
[2019-08-06] MEDS ORDERED: Pantoprazole 40 MG VIAL IVP ONE (23:14)
[2019-08-06] MEDS: traZODone 50 MG TABLET PO SCH (23:28)
[2019-08-06] MEDS: *HR* OxyCODONE Immed Rel 5 MG TABLET PO PRN (23:28)
[2019-08-07] MEDS: Apixaban 5 MG TABLET PO SCH ×3 (00:04→21:07)
[2019-08-07] MEDS: Pregabalin 50 MG CAPSULE PO SCH ×4 (00:04→21:04)
[2019-08-07] MEDS: Acetaminophen/Butalbital/CaffeineTABLET PO PRN ×2 (03:54→21:13)
[2019-08-07] MEDS: tiZANidine 4 MG TABLET PO PRN ×2 (03:54→16:59)
[2019-08-07] MEDS: Ipratropium/Albuterol Neb 3 ML IH SCH ×6 (04:00→23:59)
[2019-08-07 05:58] LABS: VBG HCO3 27 mEq/L (21-27); VBG PCO2 52 mmHg (41-51); VBG PH 7.32 pH Units (7.32-7.42); VBG PO2 95 mmHg (25-50)
[2019-08-07] MEDS: Budesonide/Formoterol 160/4.5 1 PUFF INH IH SCH ×2 (07:36→19:48)
[2019-08-07] MEDS: predniSONE 20 MG TABLET PO SCH (07:57)
[2019-08-07] MEDS: Levothyroxine 25 MCG TABLET PO SCH (07:58)
[2019-08-07] MEDS: Metoprolol XL (24 HR) Succ 50 MG TAB.ER.24H PO SCH (07:58)
[2019-08-07] MEDS: Vortioxetine Hydrobromide [Trintellix] 20 MG PO SCH (07:59)
[2019-08-07] MEDS: *HR* OxyCODONE Immed Rel 5 MG TABLET PO PRN ×3 (08:04→23:18)
[2019-08-07] MEDS ORDERED: Pregabalin 50 MG CAPSULE PO SCH (09:00)
[2019-08-07] MEDS ORDERED: Apixaban 5 MG TABLET PO SCH (09:00)
--- NOTE | 2019-08-07 10:16 | Internal Med Progress Note ---
Hospitalist Progress Note - Encounter Date of Encounter: 08/07/19 Time of Encounter: 07:45 - Subjective Interval History: Patient is currently here for the management of Acute Asthma exacerbation. She admits improvement in her SOB and chest tightness. Currently denies fever and chills. - Exam Vitals: Temp Pulse Resp BP Pulse Ox 36.7 C 84 17 103/69 93 08/07/19 06:55 08/07/19 06:55 08/07/19 07:40 08/07/19 06:55 08/07/19 07:40 Exam: GENERAL: Not in distress. Alert and Oriented HEENT: EOMI, PERRLA MOUTH: Moist oral mucosa NECK:No JVD, No lymph nodes. CHEST AND LUNGS: Bilateral wheezing. HEART: S1 and S2 normal, no murmurs ABDOMEN: Soft, nontender, no organomegaly SKIN: Normal color, no rahses, no lesions EXTREMITIES: No deformity, no edema, no tenderness, no joint swelling or clubbing NEUROLOGICAL: Normal cognition, normal motor and sensory exam. - Assessment and Plan (1) Asthma with exacerbation Current Visit: Yes Status: Acute Assessment and Plan: States that her breath and chest tightness has improved Physical exam she still has bilateral wheezing. Without oxygen her saturation was around 89% which is unusual for an improving asthma attack. Chest x-ray on admission was negative for an acute pulmonary process. Will order ABG We will continue breathing treatments and monitor. (2) Hypercoagulable state Current Visit: No Status: Chronic Assessment and Plan: Patient reports having some sort of blood clotting disorder and hypercoagulable state for which she has been thoroughly worked up by a pasteurizer Dr. Zeng. She takes Eliquis. She is had CVA's in the past. This justifies concern for possible PE since she is currently hypoxic on room air. -Continue home Eliquis (3) GERD (gastroesophageal reflux disease) Current Visit: No Status: Chronic Assessment and Plan: Patient has Gerd for which she takes Prevacid. She reports recent worsening of acid reflux of the past week. -Will continue omeprazole daily (4) Fibromyalgia Current Visit: No Status: Chronic Assessment and Plan: Patient is known history of fibromyalgia taking oxycodone, Lyrica, tizanidine, amitriptyline, hydroxyzine, Ambien. Patient believes that she has a fibromy algia flair that feels slightly worse than other past flares. Her skin from head to toe is tender to the touch even touching her hair is tender. She has had flares in the past. She describes as an ache. -Will continue her home medications that she requested oxycodone, Lyrica, tizanidine, amitriptyline, hydroxyzine. (5) Hypothyroidism Current Visit: No Status: Chronic Assessment and Plan: History of known hypothyroidism taking levothyroxine. Continue her home medication. (6) Anxiety Current Visit: No Status: Chronic Assessment and Plan: History of known anxiety taking amitriptyline, hydroxyzine, vortioxetine, Ambien. Continue home medications (7) Polypharmacy Current Visit: No Status: Acute Assessment and Plan: Patient has polypharmacy with taking a significant number of medications including oxycodone, Lyrica, tizanidine, amitriptyline, hydroxyzine, Ambien. OARRS report was checked and confirms that she does take oxycodone, Lyrica, Ambien. (8) History of CVA in adulthood Current Visit: No Status: Chronic Assessment and Plan: She has history of CVA some past taking Eliquis. Continue medication (9) DVT prophylaxis Current Visit: Yes Status: Acute Assessment and Plan: Continue eliquis - Time Spent with Patient Total time spent is greater than 50% in coordination of care (as documented) at patient's floor/unit and/or counseling patient: Internal Medicine: Result - Labs CBC & Chem 7: 08/06/19 18:45 08/06/19 18:45 Labs: Short CBC 08/06/19 Range/Units 18:45 WBC 8.1 (4.3-11.1) K/mcL Hgb 14.0 (11.5-15.4) g/dL Hct 44.0 (35.3-44.9) % Plt Count 200 (140-400) K/mcL Neutrophils # 5.9 (1.6-8.9) K/mcL BMP 08/06/19 18:45 Sodium 137 Potassium 3.9 Chloride 98 Carbon Dioxide 27 BUN 10 Creatinine 1.10 Glucose 90 Calcium 9.4 Cardiac Enzymes 08/06/19 Range/Units 18:45 Troponin I < 0.03 (< 0.04) ng/mL - ABG Interpretation ABG results: PT/INR, D-dimer D-Dimer 381 ng/mLFEU (0-500) 08/06/19 18:45 - Impressions Impressions Chest X-Ray 08/06/19 18:36 IMPRESSION: Negative portable study. D/ / Apoorva Colby Cha, MD / Apoorva Colby Cha, MD Interpreting Provider: Apoorva Colby Cha, MD Consult Discharge Plan - Plan Referrals: Jovanny Armstrong MD [Primary Care Provider] - (1) Asthma with exacerbation Qualifiers: Asthma severity: mild Asthma persistence: intermittent Qualified Code(s): J45.21 - Mild intermittent asthma with (acute) exacerbation (3) GERD (gastroesophageal reflux disease) Qualifiers: Esophagitis presence: esophagitis presence not specified Qualified Code(s): K21.9 - Gastro-esophageal reflux disease without esophagitis (5) Hypothyroidism Qualifiers: Hypothyroidism type: acquired Qualified Code(s): E03.9 - Hypothyroidism, unspecified
[2019-08-07 11:05] LABS: ABG Base Excess 1 mEq/L (-2 to 3); ABG HCO3 26 mEq/L (21-27); ABG Oxygen Saturation 91 % (95-98); ABG PCO2 45 mmHg (35-45); ABG PH 7.38 pH Units (7.32-7.45); ABG PO2 63 mmHg (85-104); ABG TCO2 28 mEq/L (20-26)
[2019-08-07] MEDS ORDERED: *HR* OxyCODONE Immed Rel 5 MG TABLET PO ONE (11:28)
[2019-08-07] MEDS: Ondansetron ODT 4 MG TAB.RAPDIS SL PRN ×2 (14:24→23:17)
[2019-08-07] MEDS ORDERED: Furosemide 20 MG TABLET PO PRN (15:07)
[2019-08-07] MEDS ORDERED: Melatonin 3 MG TABLET PO PRN (15:08)
--- NOTE | 2019-08-07 16:07 | Electrocardiograph Report ---
[place] [id number] Test Date: 2019-08-06 Pat Name: Miracle Amin Department: 104 Room: 2A Gender: F Turkish Line Attendant: : 1970 Requested By: Sam Shine Order Number: [id number] Reading MD: Fili Nicole Measurements Intervals [place] Rate: 82 P: 23 WI: 187 QRS: -21 QRSD: 84 T: 20 QT: 380 QTc: 419 Interpretive Statements SINUS RHYTHM LOW QRS VOLTAGE IN PRECORDIAL LEADS Electronically Signed On 08-07-2019 16:05:57 EDT by Fili Nicole
[2019-08-07] MEDS ORDERED: Isovue-370 500 ML BOTTLE IVP ONE (20:21)
[2019-08-07] MEDS: traZODone 50 MG TABLET PO SCH (21:03)
[2019-08-07] MEDS: Sennosides/Docusate Sodium TABLET PO PRN (21:07)
[2019-08-07] MEDS: hydrOXYzine pamoate 25 MG CAPSULE PO PRN (22:19)
[2019-08-08] MEDS: Ipratropium/Albuterol Neb 3 ML IH SCH ×5 (03:39→20:32)
[2019-08-08] MEDS: *HR* OxyCODONE Immed Rel 5 MG TABLET PO PRN ×3 (06:24→19:05)
[2019-08-08] MEDS: Levothyroxine 25 MCG TABLET PO SCH (06:24)
[2019-08-08] MEDS: Budesonide/Formoterol 160/4.5 1 PUFF INH IH SCH ×2 (07:12→20:32)
[2019-08-08] MEDS: Metoprolol XL (24 HR) Succ 50 MG TAB.ER.24H PO SCH (10:17)
[2019-08-08] MEDS: tiZANidine 4 MG TABLET PO PRN ×2 (10:17→20:53)
[2019-08-08] MEDS: Vortioxetine Hydrobromide [Trintellix] 20 MG PO SCH (10:18)
[2019-08-08] MEDS: Apixaban 5 MG TABLET PO SCH ×2 (10:18→20:53)
[2019-08-08] MEDS: Pregabalin 50 MG CAPSULE PO SCH ×3 (10:18→20:52)
[2019-08-08] MEDS: Multivit/Ca/Min/Fe/FA 1 TAB TABLET PO SCH (10:18)
[2019-08-08] MEDS: Ondansetron ODT 4 MG TAB.RAPDIS SL PRN (10:19)
[2019-08-08] MEDS: MethylPREDNISolone 40 MG/ML VIAL IVP SCH ×2 (12:16→17:42)
--- NOTE | 2019-08-08 14:58 | Internal Med Progress Note ---
Hospitalist Progress Note - Encounter Date of Encounter: 08/08/19 Time of Encounter: 11:00 - Subjective Interval History: no acute events overnight - Exam Vitals: Temp Pulse Resp BP Pulse Ox 98.1 F 82 20 109/66 96 08/08/19 12:11 08/08/19 12:11 08/08/19 12:11 08/08/19 12:11 08/08/19 12:11 Exam: GENERAL: Not in distress. Alert and Oriented HEENT: EOMI, PERRLA MOUTH: Moist oral mucosa NECK:No JVD, No lymph nodes. CHEST AND LUNGS: Bilateral wheezing. HEART: S1 and S2 normal, no murmurs ABDOMEN: Soft, nontender, no organomegaly SKIN: Normal color, no rahses, no lesions EXTREMITIES: No deformity, no edema, no tenderness, no joint swelling or clubbing NEUROLOGICAL: Normal cognition, normal motor and sensory exam. - Assessment and Plan (1) Asthma with exacerbation Current Visit: Yes Status: Acute Assessment and Plan: States that her breath and chest tightness has improved Physical exam she still has bilateral wheezing. Without oxygen her saturation was around 89% which is unusual for an improving asthma attack. Switch steroids to IV. continue round the clock nebs. (2) Hypercoagulable state Current Visit: Yes Status: Chronic Assessment and Plan: Patient reports having some sort of blood clotting disorder and hypercoagulable state for which she has been thoroughly worked up by a livestock farmer Dr. Zeng. She takes Eliquis. She is had CVA's in the past. This justifies concern for possible PE since she is currently hypoxic on room air. -Continue home Eliquis (3) GERD (gastroesophageal reflux disease) Current Visit: No Status: Chronic Assessment and Plan: Patient has Gerd for which she takes Prevacid. She reports recent worsening of acid reflux of the past week. -Will continue omeprazole daily (4) Fibromyalgia Current Visit: Yes Status: Chronic Assessment and Plan: Patient is known history of fibromyalgia taking oxycodone, Lyrica, tizanidine, amitriptyline, hydroxyzine, Ambien. Patient believes that she has a fibromyalgia flair that feels slightly worse than other past flares. Her skin from head to toe is tender to the touch even touching her hair is tender. She has had flares in the past. She describes as an ache. -Will continue her home medications that she requested oxycodone, Lyrica, tizanidine, amitriptyline, hydroxyzine. (5) Hypothyroidism Current Visit: Yes Status: Chronic Assessment and Plan: History of known hypothyroidism taking levothyroxine. Continue her home medication. (6) Anxiety Current Visit: No Status: Chronic Assessment and Plan: History of known anxiety taking amitriptyline, hydroxyzine, vortioxetine, Am zackery. Continue home medications (7) Polypharmacy Current Visit: Yes Status: Acute Assessment and Plan: Patient has polypharmacy with taking a significant number of medications including oxycodone, Lyrica, tizanidine, amitriptyline, hydroxyzine, Ambien. OARRS report was checked and confirms that she does take oxycodone, Lyrica, Ambien. (8) History of CVA in adulthood Current Visit: Yes Status: Chronic Assessment and Plan: She has history of CVA some past taking Eliquis. Continue medication (9) DVT prophylaxis Current Visit: Yes Status: Acute Assessment and Plan: Continue eliquis - Time Spent with Patient Total time spent is greater than 50% in coordination of care (as documented) at patient's floor/unit and/or counseling patient: Internal Medicine: Result - Labs CBC & Chem 7: 08/06/19 18:45 08/06/19 18:45 - ABG Interpretation ABG results: ABG ABG pH 7.38 pH Units (7.32-7.45) 08/07/19 10:57 ABG pCO2 45 mmHg (35-45) 08/07/19 10:57 ABG pO2 63 mmHg (85-104) L 08/07/19 10:57 ABG O2 Saturation 91 % (95-98) L 08/07/19 10:57 PT/INR, D-dimer D-Dimer 381 ng/mLFEU (0-500) 08/06/19 18:45 - Impressions Impressions Chest CTA 08/07/19 20:21 IMPRESSION: No evidence of pulmonary embolism. Bands of density within both lower lobes and to a greater extent in the posterior right upper lobe, likely atelectasis. Correlation for the possibility of pneumonia is recommended, particularly of the posterior right upper lobe. D/ / Apoorva Colby Cha, MD / Apoovra Colby Cha, MD Interpreting Provider: Apoorva Colby Cha, MD Consult Discharge Plan - Plan Referrals: Jovanny Armstrong MD [Primary Care Provider] - (1) Asthma with exacerbation Qualifiers: Asthma severity: mild Asthma persistence: intermittent Qualified Code(s): J45.21 - Mild intermittent asthma with (acute) exacerbation (3) GERD (gastroesophageal reflux disease) Qualifiers: Esophagitis presence: esophagitis presence not specified Qualified Code(s): K 21.9 - Gastro-esophageal reflux disease without esophagitis (5) Hypothyroidism Qualifiers: Hypothyroidism type: acquired Qualified Code(s): E03.9 - Hypothyroidism, unspecified
[2019-08-08] MEDS: Acetaminophen/Butalbital/CaffeineTABLET PO PRN (15:12)
[2019-08-08] MEDS: Benzonatate 100 MG CAPSULE PO PRN (15:24)
[2019-08-08] MEDS: traZODone 50 MG TABLET PO SCH (20:52)
[2019-08-08] MEDS: Sennosides/Docusate Sodium TABLET PO PRN (20:53)
[2019-08-08] MEDS: Nystatin SUSP 5 ML UD.LIQ PO SCH (20:53)
[2019-08-09] MEDS: Ipratropium/Albuterol Neb 3 ML IH SCH ×4 (00:12→11:18)
[2019-08-09] MEDS: MethylPREDNISolone 40 MG/ML VIAL IVP SCH ×3 (00:48→16:09)
[2019-08-09] MEDS: *HR* OxyCODONE Immed Rel 5 MG TABLET PO PRN ×4 (00:49→21:40)
[2019-08-09] MEDS: predniSONE 20 MG TABLET PO SCH (03:25)
[2019-08-09] MEDS: Magic Mouthwash 10 ML UD Cup PO SCH ×3 (06:34→16:09)
[2019-08-09] MEDS: Levothyroxine 25 MCG TABLET PO SCH (06:34)
[2019-08-09] MEDS: Budesonide/Formoterol 160/4.5 1 PUFF INH IH SCH ×2 (07:29→20:01)
[2019-08-09] MEDS: Pregabalin 50 MG CAPSULE PO SCH ×3 (07:50→21:39)
[2019-08-09] MEDS: Nystatin SUSP 5 ML UD.LIQ PO SCH ×4 (07:51→21:41)
[2019-08-09] MEDS: Vortioxetine Hydrobromide [Trintellix] 20 MG PO SCH (07:51)
[2019-08-09] MEDS: Multivit/Ca/Min/Fe/FA 1 TAB TABLET PO SCH (07:51)
[2019-08-09] MEDS: Apixaban 5 MG TABLET PO SCH ×2 (07:51→21:40)
[2019-08-09] MEDS: Metoprolol XL (24 HR) Succ 50 MG TAB.ER.24H PO SCH (07:51)
--- NOTE | 2019-08-09 11:14 | Internal Med Progress Note ---
Hospitalist Progress Note - Encounter Date of Encounter: 08/09/19 Time of Encounter: 10:00 - Subjective Interval History: No acute events overnight - Exam Vitals: Temp Pulse Resp BP Pulse Ox 97.6 F 90 16 111/77 91 08/09/19 10:48 08/09/19 10:48 08/09/19 10:48 08/09/19 10:48 08/09/19 10:48 Exam: GENERAL: Not in distress. Alert and Oriented HEENT: EOMI, PERRLA MOUTH: Moist oral mucosa NECK:No JVD, No lymph nodes. CHEST AND LUNGS: Bilateral wheezing. HEART: S1 and S2 normal, no murmurs ABDOMEN: Soft, nontender, no organomegaly SKIN: Normal color, no rahses, no lesions EXTREMITIES: No deformity, no edema, no tenderness, no joint swelling or clubbing NEUROLOGICAL: Normal cognition, normal motor and sensory exam. - Assessment and Plan (1) Asthma with exacerbation Current Visit: Yes Status: Acute Assessment and Plan: States that her breath and chest tightness has improved Switch steroids to IV. continue round the clock nebs. Improving this am. Still desaturating without oxygen (2) Hypercoagulable state Current Visit: Yes Status: Chronic Assessment and Plan: Patient reports having some sort of blood clotting disorder and hypercoagulable state for which she has been thoroughly worked up by a mall manager Dr. Zeng. She takes Eliquis. She is had CVA's in the past. This justifies concern for possible PE since she is currently hypoxic on room air. -Continue home Eliquis (3) GERD (gastroesophageal reflux disease) Current Visit: Yes Status: Chronic Assessment and Plan: Patient has Gerd for which she takes Prevacid. She reports recent worsening of acid reflux of the past week. -Will continue omeprazole daily (4) Fibromyalgia Current Visit: Yes Status: Chronic Assessment and Plan: Patient is known history of fibromyalgia taking oxycodone, Lyrica, tizanidine, amitriptyline, hydroxyzine, Ambien. Patient believes that she has a fibromyalgia flair that feels slightly worse than other past flares. Her skin from head to toe is tender to the touch even touching her hair is tender. She has had flares in the past. She describes as an ache. -Will continue her home medications that she requested oxycodone, Lyrica, tizanidine, amitriptyline, hydroxyzine. (5) Hypothyroidism Current Visit: Yes Status: Chronic Assessment and Plan: History of known hypothyroidism taking levothyroxine. Continue her home medication. (6) Anxiety Current Visit: Yes Status: Chronic Assessment and Plan: History of known anxiety taking amitriptyline, hydroxyzine, vortioxetine, Ambien. Continue home medications (7) Polypharmacy Current Visit: Yes Status: Acute Assessment and Plan: Patient has polypharmacy with taking a significant number of medications including oxycodone, Lyrica, tizanidine, amitriptyline, hydroxyzine, Ambien. O[facility] report was checked and confirms that she does take oxycodone, Lyrica, Ambien. (8) History of CVA in adulthood Current Visit: Yes Status: Chronic Assessment and Plan: She has history of CVA some past taking Eliquis. Continue medication (9) DVT prophylaxis Current Visit: Yes Status: Acute Assessment and Plan: Continue eliquis - Time Spent with Patient Total time spent is greater than 50% in coordination of care (as documented) at patient's floor/unit and/or counseling patient: Internal Medicine: Result - Labs CBC & Chem 7: 08/06/19 18:45 08/06/19 18:45 - ABG Interpretation ABG results: ABG ABG pH 7.38 pH Units (7.32-7.45) 08/07/19 10:57 ABG pCO2 45 mmHg (35-45) 08/07/19 10:57 ABG pO2 63 mmHg (85-104) L 08/07/19 10:57 ABG O2 Saturation 91 % (95-98) L 08/07/19 10:57 PT/INR, D-dimer D-Dimer 381 ng/mLFEU (0-500) 08/06/19 18:45 Consult Discharge Plan - Plan Referrals: Jovanny Armstrong MD [Primary Care Provider] - (1) Asthma with exacerbation Qualifiers: Asthma severity: mild Asthma persistence: intermittent Qualified Code(s): J45.21 - Mild intermittent asthma with (acute) exacerbation (3) GERD (gastroesophageal reflux disease) Qualifiers: Esophagitis presence: esophagitis presence not specified Qualified Code(s): K21.9 - Gastro-esophageal reflux disease without esophagitis (5) Hypothyroidism Qualifiers: Hypothyroidism type: acquired Qualified Code(s): E03.9 - Hypothyroidism, unspecified
[2019-08-09] MEDS: Acetaminophen/Butalbital/CaffeineTABLET PO PRN ×2 (16:01→21:39)
[2019-08-09] MEDS: hydrOXYzine pamoate 25 MG CAPSULE PO PRN (16:09)
[2019-08-09] MEDS: tiZANidine 4 MG TABLET PO PRN ×2 (16:13→21:39)
[2019-08-09] MEDS: Ipratropium/Albuterol Neb 3 ML IH PRN (20:02)
[2019-08-09] MEDS: traZODone 50 MG TABLET PO SCH (21:39)
[2019-08-09] MEDS: Benzonatate 100 MG CAPSULE PO PRN (21:39)
[2019-08-09] MEDS: Sennosides/Docusate Sodium TABLET PO PRN (21:40)
[2019-08-10] MEDS: MethylPREDNISolone 40 MG/ML VIAL IVP SCH (06:05)
[2019-08-10] MEDS: Levothyroxine 25 MCG TABLET PO SCH (06:05)
[2019-08-10 07:25] VITALS: BP 128/86
--- NOTE | 2019-08-10 07:42 | Discharge Summary ---
Date of Encounter: 08/10/19 Time of Encounter: 07:39 - Discharge Diagnosis (1) Asthma with exacerbation Priority: Primary Status: Acute Assessment and Plan: 48 year old female with past medical history of asthma, CVA, CAD, thyroid disease, "blood clotting disorder", fibromyalgia who presented to [facility] complaining of shortness of breath. On my examination of the patient she reported that Tuesday afternoon she noticed she was more short of breath and it continued to worsen throughout the day. Tuesday there was no real improvement and she used her breathing treatments that did not help. It was exacerbated by exertion. She had some chest tightness with the feeling of unable to take a deep breath. She believed that she was having an asthma exacerbation she has had one which felt similar and was hospitalized in the past. She noticed her asthma is worse in the fall and in the winter for which she uses her dulera inhaler daily only during those times. She had been given 2L of oxygen to wear at bedtime however, she has not worn it in a very long time and her PCP discontinued. Additionally she started having a cough with yellow sputum production and chest congestion. She was assessed with acute hypoxic respiratory failure secondary to astham exacerbation and started on round the clock duonebs and steroids. She improved and her wheezing resolved. She was saturating 95 % on room air this am and lungs were clear. She was discharged home in a stable condition Qualifiers: Asthma severity: mild Asthma persistence: intermittent Qualified Code(s): J45.21 - Mild intermittent asthma with (acute) exacerbation (2) Hypercoagulable state Priority: Primary Status: Chronic (3) GERD (gastroesophageal reflux disease) Priority: Primary Status: Chronic Qualifiers: Esophagitis presence: esophagitis presence not specified Qualified Code(s): K21.9 - Gastro-esophageal reflux disease without esophagitis (4) Fibromyalgia Priority: Primary Status: Chronic (5) Hypothyroidism Priority: Primary Status: Chronic Qualifiers: Hypothyroidism type: acquired Qualified Code(s): E03.9 - Hypothyroidism, unspecified (6) Anxiety Priority: Primary Status: Chronic (7) Polypharmacy Priority: Primary Status: Acute (8) History of CVA in adulthood Priority: Primary Status: Chronic (9) DVT prophylaxis Priority: Primary Status: Acute Hospital course: Ms. Amin is a 48 year old female - Time Spent with Patient Total time spent providing and/or coordinating discharge services: - Discharge Medications Prescriptions: New Benzonatate [Tessalon] 200 mg PO TID PRN #60 capsule PRN Reason: Cough predniSONE [PredniSONE] 40 mg PO DAILY 5 Days #10 tablet Ipratropium/Albuterol Neb [Duoneb] 3 ml IH [id number] 30 Days #120 inhsol Continued Apixaban [Eliquis] 5 mg PO BID #60 tablet Levothyroxine [Synthroid] 25 mcg PO 0630 Melatonin 3 mg PO HS PRN #0 tablet PRN Reason: Insomnia Zolpidem [Ambien] 10 mg PO HS PRN #3 tablet PRN Reason: Insomnia Albuterol Neb [Proventil Neb] 2.5 mg IH Q4HR PRN PRN Reason: Shortness Of Breath Amitriptyline HCl 75 mg PO HS Atorvastatin [Lipitor] 40 mg PO DAILY Butalb/Acetaminophen/Caffeine [[id number]-Lgyg 50-325-40] 1 each PO Q4H PRN PRN Reason: Migraine Headache Dextromethorphan HBr/Quinidine [Nuedexta 20-10 mg Capsule] 1 cap PO BID Folic Acid/Multivit-Min/Lutein [Adult Multivitamin Gummies] 1 each PO DAILY Furosemide [Lasix] 20 mg PO DAILY PRN PRN Reason: Swelling hydrOXYzine pamoate [HydrOXYzine Pamoate] 50 mg PO TID PRN PRN Reason: Anxiety Ketorolac [Toradol] 10 mg PO BID PRN PRN Reason: Headache Metoprolol Succinate [Toprol Xl] 100 mg PO DAILY Montelukast [Singulair] 10 mg PO QPM OxyCODONE Immed Rel [Roxicodone 10 MG] 10 mg PO QID PRN PRN Reason: Pain Pregabalin 200 mg PO TID Sennosides/Docusate Sodium [Senna Plus] 1 each PO BID PRN PRN Reason: Constipation Tizanidine HCl 4 mg PO TID PRN PRN Reason: Muscle Spasm Trazodone HCl 200 mg PO HS Vortioxetine Hydrobromide [Trintellix] 20 mg PO DAILY Mometasone/Formoterol [Dulera 200 Mcg/5 Mcg Inhaler] 2 puff IH BID Home Medications: Apixaban [Eliquis] 5 mg PO BID #60 tablet 02/02/16 [Rx] Levothyroxine [Synthroid] 25 mcg PO 0630 08/24/16 [History] Melatonin 3 mg PO HS PRN #0 tablet 08/31/16 [Rx] Zolpidem [Ambien] 10 mg PO HS PRN #3 tablet 08/31/16 [Rx] Albuterol Neb [Proventil Neb] 2.5 mg IH Q4HR PRN 08/06/19 [History] Amitriptyline HCl 75 mg PO HS 08/06/19 [History] Atorvastatin [Lipitor] 40 mg PO DAILY 08/06/19 [History] Butalb/Acetaminophen/Caffeine [Mukazz-Ovyxhsca-Rucp 50-325-40] 1 each PO Q4H PRN 08/06/19 [History] Dextromethorphan HBr/Quinidine [Nuedexta 20-10 mg Capsule] 1 cap PO BID 08/06/19 [History] Folic Acid/Multivit-Min/Lutein [Adult Multivitamin Gummies] 1 each PO DAILY 08/06/19 [History] Furosemide [Lasix] 20 mg PO DAILY PRN 08/06/19 [History] Ketorolac [Toradol] 10 mg PO BID PRN 08/06/19 [History] Metoprolol Succinate [Toprol Xl] 100 mg PO DAILY 08/06/19 [History] Mometasone/Formoterol [Dulera 200 Mcg/5 Mcg Inhaler] 2 puff IH BID 08/06/19 [History] Montelukast [Singulair] 10 mg PO QPM 08/06/19 [History] OxyCODONE Immed Rel [Roxicodone 10 MG] 10 mg PO QID PRN 08/06/19 [History] Pregabalin 200 mg PO TID 08/06/19 [History] Sennosides/Docusate Sodium [Senna Plus] 1 each PO BID PRN 08/06/19 [History] Tizanidine HCl 4 mg PO TID PRN 08/06/19 [History] Trazodone HCl 200 mg PO HS 08/06/19 [History] Vortioxetine Hydrobromide [Trintellix] 20 mg PO DAILY 08/06/19 [History] hydrOXYzine pamoate [HydrOXYzine Pamoate] 50 mg PO TID PRN 08/06/19 [History] Benzonatate [Tessalon] 200 mg PO TID PRN #60 capsule 08/10/19 [Rx] Ipratropium/Albuterol Neb [Duoneb] 3 ml IH [id number] 30 Days #120 inhsol 08/10/19 [Rx] predniSONE [PredniSONE] 40 mg PO DAILY 5 Days #10 tablet 08/10/19 [Rx] Allergies/Adverse Reactions: Allergy/AdvReac Type Severity Reaction Status Date / Time codeine Allergy Nausea Verified 08/06/19 18:00 Penicillins [PCN] Allergy Vomiting Verified 08/06/19 18:00 Pineapple Allergy Hives Verified 08/06/19 18:00 rofecoxib [From Vioxx] Allergy See Verified 08/06/19 18:00 Comments Sulfa (Sulfonamide Allergy Rash Verified 08/06/19 18:00 Antibiotics) Date of admission: 08/06/19 20:34 Primary care physician: Jovanny Armstrong MD - Constitutional Vitals: Temp Pulse Resp BP Pulse Ox 98.0 F 65 18 128/86 93 08/10/19 07:21 08/10/19 07:21 08/10/19 07:21 08/10/19 07:21 08/10/19 07:21 Exam: GENERAL: Not in distress. Alert and Oriented HEENT: EOMI, PERRLA MOUTH: Moist oral mucosa NECK:No JVD, No lymph nodes. CHEST AND LUNGS: Bilateral wheezing. HEART: S1 and S2 normal, no murmurs ABDOMEN: Soft, nontender, no organomegaly SKIN: Normal color, no rahses, no lesions EXTREMITIES: No deformity, no edema, no tenderness, no joint swelling or clubbing NEUROLOGICAL: Normal cognition, normal motor and sensory exam. - Patient Status Disposition: Home, Self-Care Condition: Good - Discharge Instructions Instructions: Benzonatate (By mouth), Prednisone (By mouth), Ipratropium/Albuterol (By breathing) Follow Up With: Jovanny Armstrong MD [Primary Care Provider] - 08/15/19 10:00 am (Hospital follow up scheduled on 08/10/19)
[2019-08-10] MEDS: Budesonide/Formoterol 160/4.5 1 PUFF INH IH SCH (08:06)
[2019-08-10] MEDS: Ipratropium/Albuterol Neb 3 ML IH PRN (08:06)
[2019-08-10] MEDS: Apixaban 5 MG TABLET PO SCH (08:29)
[2019-08-10] MEDS: Pregabalin 50 MG CAPSULE PO SCH (08:30)
[2019-08-10] MEDS: Magic Mouthwash 10 ML UD Cup PO SCH ×2 (08:31→10:11)
[2019-08-10] MEDS: Metoprolol XL (24 HR) Succ 50 MG TAB.ER.24H PO SCH (08:31)
[2019-08-10] MEDS: Multivit/Ca/Min/Fe/FA 1 TAB TABLET PO SCH (08:31)
[2019-08-10] MEDS: Nystatin SUSP 5 ML UD.LIQ PO SCH ×2 (08:31→10:11)
[2019-08-10] MEDS: Vortioxetine Hydrobromide [Trintellix] 20 MG PO SCH (08:42)
[2019-08-10] MEDS: *HR* OxyCODONE Immed Rel 5 MG TABLET PO PRN (08:51)
[2019-08-10] MEDS: tiZANidine 4 MG TABLET PO PRN (08:52)
[2019-08-10] MEDS: Benzonatate 100 MG CAPSULE PO PRN (10:11)
== END 2019-08-10 13:52 | disposition home or self-care (01) ==
LOC: 2ANU 17:56 → EMEROOARM 17:56 → SUATTDRO 20:34 → 2ANU 21:25
PROVIDERS: ADMIT Family Medicine; ATTEND Internal Medicine

== ENCOUNTER 2020-06-18 19:46 | Observation (INO) ==
[2020-06-18 20:10] LABS: Basophils # 0.1 K/mcL (0.0-0.2); Basophils % 0.8 %; Eosinophils % 0.3 %; Hematocrit 38.8 % (35.3-44.9); Hemoglobin 12.3 g/dL (11.5-15.4); Immature Granulocytes % 1.1 % (0-4); Lymphocytes # 1.1 K/mcL (0.6-4.6); Lymphocytes % 14.8 %; Mean Corpuscular HGB Conc 31.7 g/dL (31.6-35.5); Mean Corpuscular Hemoglobin 29.1 pg (28.0-33.3); Mean Corpuscular Volume 91.7 fL (83.0-100.0); Mean Platelet Volume 11.1 fL (9.4-12.4); Monocytes # 0.2 K/mcL (0.0-1.3); Monocytes % 2.8 %; Neutrophils # 5.7 K/mcL (1.6-8.9); Platelet Count 201 K/mcL (140-400); Red Blood Count 4.23 M/mcL (3.82-4.97); Red Cell Distribution Width 12.8 % (11.5-14.5); Segmented Neutrophils % 80.2 %; White Blood Count 7.2 K/mcL (4.3-11.1)
[2020-06-18 20:15] LABS: INR 1.3; Prothrombin Time 14.8 Seconds (9.4-12.1)
[2020-06-18 20:18] LABS: Activated Partial Thrombo Time 37.3 Seconds (26.0-36.0)
[2020-06-18 20:33] LABS: Alanine Aminotransferase 19 Units/L (7-52); Albumin 4.4 g/dL (3.5-5.7); Albumin/Globulin Ratio 1.8 (1.1-2.2); Alkaline Phosphatase 86 Units/L (34-104); Aspartate Amino Transferase 24 Units/L (13-39); BUN/Creatinine Ratio 11 (6-26); Bilirubin,Direct 0.1 mg/dL (0.0-0.2); Bilirubin,Indirect 0.3 mg/dL (0.0-1.0); Bilirubin,Total 0.4 mg/dL (0.3-1.0); Blood Urea Nitrogen 9 mg/dL (6-20); Calcium 9.3 mg/dL (8.6-10.3); Carbon Dioxide 27 mEq/L (23-29); Chloride 104 mEq/L (98-107); Ethanol < 10 mg/dL (Less than 10); Globulin 2.5 g/dL (2.4-3.5); Glucose 90 mg/dL (70-105); Osmolality,Calculated 290 (280-300); Potassium 4.5 mEq/L (3.5-5.1); Sodium 141 mEq/L (136-145); Total Protein 6.9 g/dL (6.4-8.9); Troponin I < 0.03 ng/mL (< 0.04); eGFR For African Americans > 60 (> 60); eGFR For Non-African Americans > 60 (> 60)
[2020-06-18 21:20] LABS: Bilirubin,Urine Negative (Negative); Blood,Urine Negative (Negative); Clarity,Urine Clear (Clear); Color,Urine Colorless (Yellow); Glucose,Urine (UA) Normal (Normal); Ketones,Urine Negative (Negative); Leukocyte Esterase,Urine Negative (Negative); Nitrite,Urine Negative (Negative); Protein,Urine Negative (Neg-Trace); Specific Gravity,Urine 1.007 (1.010-1.025); Urobilinogen,Urine Normal (Normal)
[2020-06-18 21:30] LABS: Amphetamine Screen,Urine Negative ng/mL (Cutoff=1000); Barbiturate Screen,Urine Negative ng/mL (Cutoff=200); Benzodiazepines Screen,Urine Negative ng/mL (Cutoff=200); Cannabinoid Screen,Urine Negative ng/mL (Cutoff = 50); Cocaine Screen,Urine Negative ng/mL (Cutoff= 300); Opiate Screen,Urine Negative ng/mL (Cutoff=300); Phencyclidine Screen,Urine Negative ng/mL (Cutoff=25)
[2020-06-18] MEDS ORDERED: Naloxone 0.4 MG/ML INJ IVP PRN (21:50)
[2020-06-18] MEDS ORDERED: Furosemide 20 MG TABLET PO PRN (23:34)
[2020-06-18] MEDS ORDERED: Sennosides/Docusate Sodium TABLET PO PRN (23:34)
[2020-06-18] MEDS ORDERED: Albuterol 2.5 MG/3 ML NEBULIZER IH PRN (23:34)
[2020-06-19] MEDS ORDERED: Perflutren Lipid Microsphere 1.3 ML in 0.9 % Sodium Chloride 8.7 ML IVP PRN (01:43)
[2020-06-19] MEDS: hydrOXYzine pamoate 25 MG CAPSULE PO PRN ×2 (02:40→09:44)
[2020-06-19] MEDS ORDERED: Pregabalin 50 MG CAPSULE PO ONE (03:52)
[2020-06-19] MEDS: Levothyroxine 25 MCG TABLET PO SCH (05:26)
[2020-06-19 05:41] LABS: Hematocrit 37.9 % (35.3-44.9); Hemoglobin 12.1 g/dL (11.5-15.4); Mean Corpuscular HGB Conc 31.9 g/dL (31.6-35.5); Mean Corpuscular Hemoglobin 29.7 pg (28.0-33.3); Mean Corpuscular Volume 93.1 fL (83.0-100.0); Platelet Count 179 K/mcL (140-400); Red Blood Count 4.07 M/mcL (3.82-4.97); Red Cell Distribution Width 12.7 % (11.5-14.5); White Blood Count 7.2 K/mcL (4.3-11.1)
[2020-06-19 05:59] LABS: INR 1.2; Prothrombin Time 13.2 Seconds (9.4-12.1)
[2020-06-19 06:24] LABS: Alanine Aminotransferase 17 Units/L (7-52); Albumin 4.3 g/dL (3.5-5.7); Albumin/Globulin Ratio 1.7 (1.1-2.2); Alkaline Phosphatase 83 Units/L (34-104); Aspartate Amino Transferase 21 Units/L (13-39); BUN/Creatinine Ratio 10 (6-26); Bilirubin,Direct 0.1 mg/dL (0.0-0.2); Bilirubin,Indirect 0.4 mg/dL (0.0-1.0); Bilirubin,Total 0.5 mg/dL (0.3-1.0); Blood Urea Nitrogen 8 mg/dL (6-20); Calcium 9.2 mg/dL (8.6-10.3); Carbon Dioxide 27 mEq/L (23-29); Chloride 105 mEq/L (98-107); Chol/HDL Ratio 3.3 (0-4.9); Cholesterol 142 mg/dL (< 200); Globulin 2.5 g/dL (2.4-3.5); Glucose 93 mg/dL (70-105); HDL Cholesterol 43 mg/dL (40-59); LDL Cholesterol,Calculated 67 mg/dL (< 100); Magnesium 2.1 mg/dL (1.6-2.6); Osmolality,Calculated 290 (280-300); Potassium 3.6 mEq/L (3.5-5.1); Sodium 141 mEq/L (136-145); Total Protein 6.8 g/dL (6.4-8.9); Triglycerides 161 mg/dL (< 150); Troponin I < 0.03 ng/mL (< 0.04); eGFR For African Americans > 60 (> 60); eGFR For Non-African Americans > 60 (> 60)
[2020-06-19] MEDS: Budesonide/Formoterol 160/4.5 1 PUFF INH IH SCH ×2 (07:58→19:55)
[2020-06-19] MEDS: Metoprolol XL (24 HR) Succ 50 MG TAB.ER.24H PO SCH (08:58)
[2020-06-19] MEDS: Apixaban 5 MG TABLET PO SCH ×2 (08:58→20:21)
[2020-06-19] MEDS: Pregabalin 50 MG CAPSULE PO SCH ×3 (08:58→20:22)
[2020-06-19] MEDS ORDERED: Pregabalin 50 MG CAPSULE PO SCH (09:00)
[2020-06-19] MEDS: Vortioxetine Hydrobromide [Trintellix] 20 MG PO SCH (09:00)
[2020-06-19 09:10] LABS: C-Reactive Protein 11 mg/L (Less than 10)
[2020-06-19 09:26] LABS: Estimated Average Glucose 111 mg/dl
[2020-06-19] MEDS ORDERED: *HR* LORazepam 2 MG/ML VIAL IVP ONE (09:59)
[2020-06-19] MEDS ORDERED: tiZANidine 4 MG TABLET PO PRN (17:54)
[2020-06-19] MEDS: *HR* OxyCODONE Immed Rel 5 MG TABLET PO PRN (18:03)
[2020-06-19] MEDS ORDERED: traZODone 50 MG TABLET PO SCH ×2 (21:00)
[2020-06-19] MEDS ORDERED: 0.9 % Sodium Chloride 250 ML IVC ONE (23:02)
[2020-06-20] MEDS: Levothyroxine 25 MCG TABLET PO SCH (05:13)
[2020-06-20 06:59] VITALS: BP 118/80
[2020-06-20] MEDS: Budesonide/Formoterol 160/4.5 1 PUFF INH IH SCH (07:40)
[2020-06-20] MEDS: Vortioxetine Hydrobromide [Trintellix] 20 MG PO SCH (07:53)
[2020-06-20] MEDS: Pregabalin 50 MG CAPSULE PO SCH (07:55)
[2020-06-20] MEDS: Metoprolol XL (24 HR) Succ 50 MG TAB.ER.24H PO SCH (07:55)
[2020-06-20] MEDS: Apixaban 5 MG TABLET PO SCH (07:58)
[2020-06-20] MEDS: *HR* OxyCODONE Immed Rel 5 MG TABLET PO PRN (07:58)
[2020-06-20] MEDS: hydrOXYzine pamoate 25 MG CAPSULE PO PRN (09:26)
[2020-06-21 10:44] LABS: ANA IgG by ELISA NONE DETECTED (None Detected)
[2020-06-21 11:38] LABS: SSA 52 (Anti-RO) Antibody 1 AU/mL (0-40); SSA 60 (Anti-RO) Antibody 0 AU/mL (0-40)
== END 2020-06-20 11:50 | disposition home or self-care (01) ==
LOC: EMEROOARM 19:46 → 3BNU 19:46 → SUATTDRO 21:31 → 3BNU 21:59
PROVIDERS: ADMIT Internal Medicine; ATTEND Internal Medicine

== ENCOUNTER 2020-12-29 21:26 | Observation (INO) ==
[2020-12-29] MEDS ORDERED: Isovue-370 500 ML BOTTLE IVP ONE (21:53)
[2020-12-29] MEDS ORDERED: *HR* OxyCODONE Immed Rel 5 MG TABLET PO ONE (21:59)
[2020-12-29 22:16] LABS: INR 1.4; Prothrombin Time 16.4 Seconds (9.4-12.1)
[2020-12-29 22:19] LABS: Activated Partial Thrombo Time 34.4 Seconds (26.0-36.0)
[2020-12-29 22:20] LABS: Basophils # 0.1 K/mcL (0.0-0.2); Basophils % 0.9 %; Eosinophils # 0.3 K/mcL (0.0-0.6); Eosinophils % 3.8 %; Hematocrit 37.7 % (35.3-44.9); Hemoglobin 12.1 g/dL (11.5-15.4); Immature Granulocytes % 0.4 % (0-4); Lymphocytes # 1.8 K/mcL (0.6-4.6); Mean Corpuscular HGB Conc 32.1 g/dL (31.6-35.5); Mean Corpuscular Hemoglobin 28.9 pg (28.0-33.3); Monocytes # 0.4 K/mcL (0.0-1.3); Monocytes % 5.5 %; Neutrophils # 5.3 K/mcL (1.6-8.9); Platelet Count 176 K/mcL (140-400); Red Blood Count 4.19 M/mcL (3.82-4.97); Red Cell Distribution Width 12.5 % (11.5-14.5); Segmented Neutrophils % 66.4 %
[2020-12-29 22:33] LABS: Alanine Aminotransferase 13 Units/L (7-52); Albumin 4.1 g/dL (3.5-5.7); Albumin/Globulin Ratio 1.6 (1.1-2.2); Alkaline Phosphatase 84 Units/L (34-104); Aspartate Amino Transferase 14 Units/L (13-39); BUN/Creatinine Ratio 11 (6-26); Bilirubin,Total 0.4 mg/dL (0.3-1.0); Blood Urea Nitrogen 9 mg/dL (6-20); Calcium 9.1 mg/dL (8.6-10.3); Carbon Dioxide 28 mEq/L (23-29); Chloride 107 mEq/L (98-107); Creatine Kinase 55 Units/L (30-223); Globulin 2.5 g/dL (2.4-3.5); Glucose 84 mg/dL (70-105); Osmolality,Calculated 290 (280-300); Potassium 3.8 mEq/L (3.5-5.1); Sodium 141 mEq/L (136-145); Total Protein 6.6 g/dL (6.4-8.9); Troponin I < 0.03 ng/mL (< 0.04); eGFR For African Americans > 60 (> 60); eGFR For Non-African Americans > 60 (> 60)
[2020-12-30] MEDS ORDERED: Ondansetron 4 MG/2 ML VIAL IVP ONE (00:45)
[2020-12-30] MEDS ORDERED: *HR* OxyCODONE Immed Rel 5 MG TABLET PO ONE (01:46)
[2020-12-30] MEDS ORDERED: Ondansetron 4 MG/2 ML VIAL IVP PRN (03:49)
[2020-12-30] MEDS ORDERED: Naloxone 0.4 MG/ML INJ IVP PRN (03:49)
[2020-12-30] MEDS: Ketorolac 15 MG/ML VIAL IVP PRN ×3 (05:13→21:37)
[2020-12-30] MEDS: *HR* OxyCODONE Immed Rel 5 MG TABLET PO PRN ×2 (08:28→15:28)
[2020-12-30] MEDS ORDERED: Ipratropium/Albuterol Neb 3 ML IH PRN (08:38)
[2020-12-30] MEDS ORDERED: Perflutren Lipid Microsphere 1.3 ML in 0.9 % Sodium Chloride 8.7 ML IVP PRN (08:41)
[2020-12-30] MEDS: Aspirin Enteric Coated 81 MG Tablet PO SCH (09:46)
[2020-12-30] MEDS: Multivit/Ca/Min/Fe/FA 1 TAB TABLET PO SCH (09:46)
[2020-12-30] MEDS: Pregabalin 50 MG CAPSULE PO SCH ×3 (09:46→21:37)
[2020-12-30] MEDS: Metoprolol XL (24 HR) Succ 50 MG TAB.ER.24H PO SCH (09:46)
[2020-12-30] MEDS: Apixaban 5 MG TABLET PO SCH ×2 (09:47→21:37)
[2020-12-30] MEDS: tiZANidine 4 MG TABLET PO PRN (13:06)
[2020-12-30] MEDS ORDERED: 0.9 % Sodium Chloride 1,000 ML IVC ONE (15:52)
[2020-12-30] MEDS: traZODone 50 MG TABLET PO SCH (21:37)
[2020-12-31] MEDS: *HR* OxyCODONE Immed Rel 5 MG TABLET PO PRN ×3 (00:39→20:18)
[2020-12-31] MEDS: Levothyroxine 25 MCG TABLET PO SCH (05:59)
[2020-12-31] MEDS: Metoprolol XL (24 HR) Succ 50 MG TAB.ER.24H PO SCH (07:48)
[2020-12-31] MEDS: Pregabalin 50 MG CAPSULE PO SCH ×3 (07:49→20:14)
[2020-12-31] MEDS: Multivit/Ca/Min/Fe/FA 1 TAB TABLET PO SCH (07:49)
[2020-12-31] MEDS: Aspirin Enteric Coated 81 MG Tablet PO SCH (07:49)
[2020-12-31] MEDS: Apixaban 5 MG TABLET PO SCH ×2 (07:49→20:15)
[2020-12-31] MEDS: tiZANidine 4 MG TABLET PO PRN ×2 (07:56→23:37)
[2020-12-31] MEDS ORDERED: 0.9 % Sodium Chloride 1,000 ML IVC ONE (09:49)
[2020-12-31] MEDS ORDERED: 0.9 % Sodium Chloride 1,000 ML ONE (09:51)
[2020-12-31] MEDS: Ketorolac 15 MG/ML VIAL IVP PRN (15:22)
[2020-12-31] MEDS: traZODone 50 MG TABLET PO SCH (20:15)
[2021-01-01] MEDS: Levothyroxine 25 MCG TABLET PO SCH (04:51)
[2021-01-01] MEDS: *HR* OxyCODONE Immed Rel 5 MG TABLET PO PRN ×2 (04:51→11:57)
[2021-01-01] MEDS: Apixaban 5 MG TABLET PO SCH (08:09)
[2021-01-01] MEDS: Multivit/Ca/Min/Fe/FA 1 TAB TABLET PO SCH (08:10)
[2021-01-01] MEDS: Metoprolol XL (24 HR) Succ 50 MG TAB.ER.24H PO SCH (08:10)
[2021-01-01] MEDS: Aspirin Enteric Coated 81 MG Tablet PO SCH (08:11)
[2021-01-01] MEDS: Pregabalin 50 MG CAPSULE PO SCH (08:11)
[2021-01-01] MEDS ORDERED: FLU Vac QV 20-21 (6Month+)/PF 0.5 ML SYRINGE IM ONE (10:53)
[2021-01-01 11:20] VITALS: BP 112/69
== END 2021-01-01 14:08 | disposition home health service (06) ==
LOC: 3NENU 21:26 → EMEROOARM 21:26 → 3NENU 12-30 04:06
PROVIDERS: ADMIT Student in an Organized Health Care Education/Training Program; ATTEND Student in an Organized Health Care Education/Training Program